=== PATIENT | male | born 1940 | race Caucasian/White ===

== ENCOUNTER 2018-12-24 10:33 | Emergency (ER) | payer MEDICARE ==
[~2018-12-24] VITALS: Ht 182.9 cm; Wt 104.3 kg
== END 2018-12-24 12:52 | disposition home or self-care (01) ==
LOC: ER 10:33
DX: S01.411A Laceration without foreign body of right cheek and temporomandibular area, initial encounter (principal); W22.8XXA Striking against or struck by other objects, initial encounter
CPT/HCPCS: 12015; 99282-25

== ENCOUNTER 2018-12-31 08:33 | Emergency (ER) | payer MEDICARE ==
[~2018-12-31] VITALS: Ht 182.9 cm; Wt 106.6 kg
== END 2018-12-31 08:58 | disposition home or self-care (01) ==
LOC: ER 08:33
DX: S01.81XD Laceration without foreign body of other part of head, subsequent encounter (principal); W22.8XXD Striking against or struck by other objects, subsequent encounter